=== PATIENT | female | born 2000 | race Caucasian/White ===

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

== ENCOUNTER 2020-01-23 21:59 | Outpatient (CLI) | payer OTHER ==
[~2020-01-23] VITALS: Ht 154.9 cm; Wt 60.8 kg
[2020-01-23 22:20] VITALS: BP 122/77
[2020-01-24 00:51] LABS: APPEARANCE, URINE HAZY (CLEAR); BACTERIA, URINE AUTO 1+ (NEGATIVE); BILIRUBIN, URINE AUTO NEGATIVE (NEGATIVE); BLOOD, URINE BLOOD NEGATIVE (NEGATIVE); COLOR, URINE YELLOW (YELLOW); GLUCOSE, URINE (UA) AUTO NEGATIVE (NEGATIVE); KETONE, URINE AUTO NEGATIVE (NEGATIVE); LEUKOCYTE ESTERASE, URINE AUTO NEGATIVE (NEGATIVE); MUCUS, URINE SMALL (NEGATIVE); NITRITE, URINE AUTO POSITIVE (NEGATIVE); PROTEIN, URINE AUTO NEGATIVE (NEGATIVE); RBC, URINE AUTO 0 /HPF (0-3); SPECIFIC GRAVITY URINE AUTO 1.017 (1.002-1.035); SQUAMOUS EPITHELIAL CELL UR AU 4 /HPF (0-6); TRANSITIONAL EPITHELIAL AUTO 1 /HPF; WBC, URINE AUTO 3 /HPF (0-3)
[2020-01-24] MEDS ORDERED: FLUCONAZOLE 50MG TABLET PO ONE (01:15)
[2020-01-24] MEDS ORDERED: metroNIDAZOLE (FLAGYL) 500 MG TAB PO ONE (01:15)
[2020-01-24] MEDS ORDERED: metroNIDAZOLE (FLAGYL) 500 MG TAB As Ordered ONE (01:25)
--- NOTE | 2020-01-24 01:34 | IPNPDOC ---
Text Note Date of Service The patient was seen on 01/24/20. NOTE patient is a 19 yo G1 @25+4wks gestation presents with concerns for lower abdominal cramping x 1 week. pain has been progressively getting worse. sometimes sharp and intermittent. also has lower back pain. denies constipation/dysuria/abnormal vaginal discharge/vb. vitals: normal nad, sitting in bed back: no pain, dextro scoliosis noted abd: gravid, soft, nt LE: no edema/erythema tenderness pelvic exam: normal appearing external genitalia, no lesion vagina with green/frothy discharge, no lesion cervix visually long and and closed fht: 140/mod kelly/no accel/no decel toco: quiet UA: equivocal for bacteruria urine culture pending. Wet prep: pos clue cells, pos yeast a/p patient is a 19 yo G1 @25+4wks, with vaginal yeast infection and bacterial vaginosis. possible UTI, will wait for culture to confirm. In the mean time, treat yeast infection with diflucan and BV with flagyl. return precautions given. f/u with scheduled clinic appointment. DO ANITA Shea LUAT N. DO January 24, 2020 00:05
== END 2020-01-24 01:38 | disposition home or self-care (01) ==
LOC: M LDO 21:59
PROVIDERS: ATTEND Obstetrics & Gynecology
DX: O26.892 Other specified pregnancy related conditions, second trimester (principal); R10.30 Lower abdominal pain, unspecified; M54.5 Low back pain; O23.592 Infection of other part of genital tract in pregnancy, second trimester; Z3A.25 25 weeks gestation of pregnancy
CPT/HCPCS: 81001; 87086; 87210; G0378; G0463

== ENCOUNTER 2020-02-05 16:56 | Emergency (ER) | payer OTHER ==
[~2020-02-05] VITALS: Ht 154.9 cm; Wt 60.7 kg
[2020-02-05] MEDS ORDERED: METR-265 PO (17:11)
[2020-02-05] MEDS ORDERED: GNP28TAB2 PO (17:11)
[2020-02-05] MEDS ORDERED: PANT20TA2 PO (17:11)
[2020-02-05 19:09] LABS: BASO % 0.2 % (0.0-1.0); EOS # 0.1 10^3/uL (0.0-0.5); EOS % 0.7 % (0.0-3.0); HEMATOCRIT 29.1 % (36.0-47.0); HEMOGLOBIN 9.3 g/dl (12.0-15.5); LYMPH # 1.7 10^3/uL (1.5-5.0); LYMPH % 12.3 % (24.0-44.0); MEAN CORPUSCULAR HEMOGLOBIN 27.3 pg (27.0-33.0); MEAN CORPUSCULAR VOLUME 85.3 fl (80.0-96.0); MONO # 0.7 10^3/uL (0.0-0.8); MONO % 5.2 % (0.0-5.0); NEUTROPHILS % 79.5 % (36.0-66.0); PLATELET COUNT, AUTOMATED 209 10^3/uL (150-450); RED BLOOD COUNT 3.41 10^6/uL (4.00-5.40); WHITE BLOOD COUNT 13.8 10^3/uL (4.0-10.0)
[2020-02-05 19:20] LABS: INR 0.99; PROTHROMBIN TIME 12.8 SECONDS (11.8-14.0)
[2020-02-05 19:21] LABS: PARTIAL THROMBOPLASTIN TIME 22.8 SECONDS (25.0-38.4)
[2020-02-05 19:29] LABS: D-DIMER QUANT 3266.64 ng/ml (<500)
[2020-02-05 19:48] LABS: ALBUMIN 2.5 GM/DL (3.2-5.2); ALT/SGPT 17 U/L (12-78); BILIRUBIN,DIRECT < 0.1 MG/DL (0.0-0.2); BILIRUBIN,TOTAL 0.3 MG/DL (0.2-1.0); BLOOD UREA NITROGEN 6 MG/DL (7-18); CALCIUM LEVEL 8.1 MG/DL (8.5-10.1); CARBON DIOXIDE LEVEL 24 MEQ/L (21-32); CHLORIDE LEVEL 110 MEQ/L (98-107); CK-MB VALUE MASS < 1.0 NG/ML (<3.6); CPK CREATINE PHOSPHOKINASE 29 U/L (26-192); FREE T4 0.95 NG/DL (0.78-1.33); GLUCOSE, FASTING 69 MG/DL (70-100); MB/CK RELATIVE INDEX 3.45 (< OR =4); NT-PRO BNP 32 PG/ML (<125); SODIUM LEVEL 139 MEQ/L (136-145); TOTAL PROTEIN 5.9 GM/DL (6.4-8.2); TROPONIN I < 0.02 NG/ML (< 0.10)
--- NOTE | 2020-02-05 20:02 | REPVR ---
PROCEDURE INFORMATION: Exam: US Duplex Lower Extremity Veins, Bilateral Exam date and time: 02/05/2020 7:55 PM Age: 20 years old Clinical indication: Other: SOB w/ preg; Additional info: SOB R/O dvt TECHNIQUE: Imaging protocol: Real-time duplex ultrasound of the extremities with 2-D bell scale, color Doppler flow and spectral waveform analysis with image documentation. Complete exam focused on the bilateral lower extremity veins. COMPARISON: US Duplex, Ext LOWER veins, bilat BILATERAL 11/24/2019 3:40 PM FINDINGS: Right deep veins: Unremarkable. The common femoral, femoral, proximal profunda femoral and popliteal veins are patent without thrombus. Normal Doppler waveforms. Normal compressibility and/or augmentation response. Right superficial veins: Saphenofemoral junction is patent without thrombus. Left deep veins: Unremarkable. The common femoral, femoral, proximal profunda femoral and popliteal veins are patent without thrombus. Normal Doppler waveforms. Normal compressibility and/or augmentation response. Left superficial veins: Saphenofemoral junction is patent without thrombus. Soft tissues: Unremarkable. IMPRESSION: No evidence of deep vein thrombosis. Electronically signed by: Kwame Emery On 02/05/2020 20:02:06 PM
[2020-02-05 20:03] VITALS: BP 110/60
--- NOTE | 2020-02-05 20:21 | ECGEPIP ---
[facility] - ED Test Date: 2020-02-05 Pat Name: HAZEL ROBLES Department: Room: - Gender: Female Retail Coverage Merchandiser Lead: : 2000 Requested By: Richard Blue Order Number: [id number] Reading MD: Maxime Siddiqui Measurements Intervals Meta Rate: 99 P: 35 CO: 170 QRS: 56 QRSD: 74 T: 6 QT: 331 QTc: 426 Interpretive Statements SINUS RHYTHM WITH SINUS ARRHYTHMIA Similar to tracing done 02-24-19 Electronically Signed on 02-05-2020 20:20:40 EDT by Maxime Siddiqui
--- NOTE | 2020-02-05 21:02 | REPVR ---
PROCEDURE INFORMATION: Exam: CT Angiography Chest With Contrast Exam date and time: 02/05/2020 8:46 PM Age: 20 years old Clinical indication: Shortness of breath; Patient HX: 27 weeks ; Additional info: SOB, R/O pe per ob Dr. Alonzo TECHNIQUE: Imaging protocol: Computed tomographic angiography of the chest with intravenous contrast. 3D rendering: MIP and/or 3D reconstructed images were created by the technologist. Radiation optimization: All CT scans at this facility use at least one of these dose optimization techniques: automated exposure control; mA and/or kV adjustment per patient size (includes targeted exams where dose is matched to clinical indication); or iterative reconstruction. Contrast material: ISOVUE 370; Contrast volume: 75 ml; Contrast route: IV; COMPARISON: CR Abdomen,Flat Upright,PA CHEST 09/25/2013 6:37 PM FINDINGS: Pulmonary arteries: Normal. No pulmonary emboli. Aorta: Unremarkable. No aortic aneurysm. No aortic dissection. Lungs: Unremarkable. No consolidation. No masses. Pleural space: Unremarkable. No pneumothorax. No pleural effusion. Heart: Unremarkable. No cardiomegaly. No pericardial effusion. Lymph nodes: Unremarkable. No enlarged lymph nodes. Bones/joints: Unremarkable. No acute fracture. Soft tissues: Unremarkable. IMPRESSION: No acute findings. Electronically signed by: Kwame Emery On 02/05/2020 21:02:37 PM
== END 2020-02-05 21:40 | disposition home or self-care (01) ==
LOC: M ED 16:56
DX: O99.89 Other specified diseases and conditions complicating pregnancy, childbirth and the puerperium (principal); R00.2 Palpitations; R42 Dizziness and giddiness; O99.343 Other mental disorders complicating pregnancy, third trimester; O99.353 Diseases of the nervous system complicating pregnancy, third trimester; O26.893 Other specified pregnancy related conditions, third trimester; Z3A.27 27 weeks gestation of pregnancy; Z79.899 Other long term (current) drug therapy; Z88.6 Allergy status to analgesic agent; Z88.8 Allergy status to other drugs, medicaments and biological substances

== ENCOUNTER 2020-02-11 10:28 | Outpatient (CLI) | payer OTHER ==
[~2020-02-11] VITALS: Ht 154.9 cm; Wt 61.4 kg
[~2020-02-11 10:28] MED LIST changes: +GNP28TAB2 PO; +METR-265 PO; +PANT20TA6 PO
[2020-02-11 10:51] VITALS: BP 104/72
[2020-02-11 11:50] VITALS: BP 96/66
[2020-02-11] MEDS ORDERED: IRON SUCROSE 300 MG in NS 250 ML OVER 90 MIN. IV ONE (12:00)
[2020-02-11 12:45] VITALS: BP 99/56
[2020-02-11 13:45] VITALS: BP 96/54
[2020-02-11 14:15] VITALS: BP 98/56
== END 2020-02-11 14:15 | disposition home or self-care (01) ==
LOC: M INFU 10:28
PROVIDERS: ATTEND Registered Nurse Maternal Newborn
DX: O99.012 Anemia complicating pregnancy, second trimester (principal); D50.9 Iron deficiency anemia, unspecified; Z3A.27 27 weeks gestation of pregnancy
CPT/HCPCS: 96365; 96366; J1756

== ENCOUNTER 2020-02-18 10:19 | Outpatient (CLI) | payer OTHER ==
[~2020-02-18] VITALS: Ht 154.9 cm; Wt 61.4 kg
[~2020-02-18 10:19] MED LIST changes: +PANT20TA2 PO; -PANT20TA6 PO
[2020-02-18 10:39] VITALS: BP 124/72
[2020-02-18] MEDS ORDERED: IRON SUCROSE 300 MG in NS 250 ML OVER 90 MIN. IV ONE (11:00)
[2020-02-18 12:27] VITALS: BP 104/59
== END 2020-02-18 12:30 | disposition home or self-care (01) ==
LOC: M INFU 10:19
PROVIDERS: ATTEND Registered Nurse Maternal Newborn
DX: O99.89 Other specified diseases and conditions complicating pregnancy, childbirth and the puerperium (principal); D50.9 Iron deficiency anemia, unspecified; Z3A.00 Weeks of gestation of pregnancy not specified
CPT/HCPCS: 96365; 96366; J1756

== ENCOUNTER 2020-02-25 10:53 | Outpatient (CLI) | payer OTHER ==
[~2020-02-25] VITALS: Ht 154.9 cm; Wt 61.4 kg
[~2020-02-25 10:53] MED LIST changes: -PANT20TA2 PO; +PANT20TA6 PO
[2020-02-25 11:17] VITALS: BP 109/67
[2020-02-25] MEDS ORDERED: IRON SUCROSE 300 MG in NS 250 ML OVER 90 MIN. IV ONE (12:00)
[2020-02-25 12:45] VITALS: BP 120/72
[2020-02-25 13:25] VITALS: BP 114/62
== END 2020-02-25 13:25 | disposition home or self-care (01) ==
LOC: M INFU 10:53
PROVIDERS: ATTEND Registered Nurse Maternal Newborn
DX: O99.012 Anemia complicating pregnancy, second trimester (principal); D50.9 Iron deficiency anemia, unspecified; Z3A.27 27 weeks gestation of pregnancy
CPT/HCPCS: 96365; 96366; J1756

== ENCOUNTER 2020-05-01 19:19 | Outpatient (CLI) | payer OTHER ==
[~2020-05-01] VITALS: Ht 154.9 cm; Wt 69.1 kg
[2020-05-01 19:43] VITALS: BP 115/69
== END 2020-05-01 21:36 | disposition home or self-care (01) ==
LOC: M LDO 19:19
DX: O26.893 Other specified pregnancy related conditions, third trimester (principal); Z3A.39 39 weeks gestation of pregnancy
CPT/HCPCS: 59025; G0378; G0463

== ENCOUNTER 2020-05-02 04:09 | Inpatient (IN) | payer OTHER ==
[~2020-05-02] VITALS: Ht 154.9 cm; Wt 69.1 kg
[2020-05-02] VITALS (10 sets, daily range): BP systolic 84–128; BP diastolic 52–69
[2020-05-02 04:57] LABS: HEMATOCRIT 38.1 % (36.0-47.0); HEMOGLOBIN 12.6 g/dl (12.0-15.5); MEAN CORPUSCULAR HEMOGLOBIN 28.5 pg (27.0-33.0); MEAN CORPUSCULAR HGB CONC 33.1 g/dl (32.0-36.5); MEAN CORPUSCULAR VOLUME 86.2 fl (80.0-96.0); PLATELET COUNT, AUTOMATED 210 10^3/uL (150-450); RED BLOOD COUNT 4.42 10^6/uL (4.00-5.40); WHITE BLOOD COUNT 9.6 10^3/uL (4.0-10.0)
[2020-05-02] MEDS ORDERED: miSOPROStol 50 MCG 1/2 TAB (S0191) As Ordered ONE (06:20)
--- NOTE | 2020-05-02 06:40 | HPEPDOC ---
Obstetrical History & Physical General Date of Admission May 02, 2020 at 04:28 History of Present Illness 20yo at 39+6wks presenting for c/o gush of green-tinged fluid at 0300. She reports she went to the bathroom and upon walking back to the bed had a large gush of fluid that was green-tinged. She reports good FM. Denies VB. She notes she has had cramping pelvic pain but was diagnosed with vaginal yeast infection yesterday and her cramping improved after taking monistat. Chief Complaint: Rupture of membranes Information Provided By: Patient Age: 20 : 2 Term: 0 Pre-term: 0 Abortions: 1 Livin Care Care: Good Care Dating Final EDC: May 03, 2020 Final EDC for Daily Update: May 03, 2020 Final EDC by: LMP LMP: Jul 28, 2019 1st Trimester Date: Sep 29, 2019 Weeks + Days: 9 (+2) EGA at Admission: 39 (+6) Antepartum Course Diagnos(e)s -induced tachycardia/postural tachycardia Anemia Rh negative Excessive weight gain (44lbs) GERD Migraines Height (inches): 61 Pre- weight (lbs.): 111 Admission Weight (lbs.): 154 Change in Weight (lbs.): 44 Past Medical History Past Obstetrical History : Past Obstetrical History: Multigravida () GRINDING OPERATOR History: Spontaneous Past Medical History Medical History -induced tachycardia/postural tachycardia Anemia GERD Migraines Surgical History: Tonsilectomy, [place] teeth Family History Significant Family History: Cancer (PGM - lung cancer), Diabetes (PGF), Heart disease (MGF, PGF), Hypertension (Father) Social History Marital Status: Family situation: Spouse/partner home Psychosocial History: Anxiety * Smoker: non-smoker Alcohol: Denies Drugs: denies Abuse Violence Screening Have you been hit/kicked/slapp: No Have you been sexually assault: No Imunizations Tdap status: declined Influenza Status: current (10/27/2019) Allergies Coded Allergies: ibuprofen (Verified Allergy, Intermediate, mother allergic to it, 02/24/19) gabapentin (Verified Adverse Reaction, Intermediate, muscle fatigue, 02/24/19) Medications Scheduled Pantoprazole Sodium (Pantoprazole Sodium) 20 Mg Tablet.dr, 1 TAB PO DAILY Pnv No.95/Ferrous Fum/Folic AC ( Vitamins Tablet) 1 Each Tablet, 1 TAB PO DAILY Physical Examination Physical Examination GENERAL: Alert and oriented times three. BREAST: . ABDOMEN: Gravid and non-tender to touch. FETUS: Is vertex (VTX) by sterile vaginal examination (SVE), fetus is vertex (VTX) by Get. HEART RATE: Regular rate and rhythm. LUNGS: Clear to auscultation (CTA). EXTREMITIES: No edema. No clonus. Deep tendon reflexes (DTRs) + . Vital Signs/I&O Vital Signs Date Time Temp Pulse Resp B/P (MAP) Pulse Ox O2 Delivery O2 Flow Rate FiO2 05/02/20 04:20 97.9 117 16 126/69 (88) Laboratory Data 24H LABS Laboratory Tests 2 05/02/20 04:30: Nucleated Red Blood Cells % (auto) 0.0 05/02/20 04:33: Serology Scanned Report Hepatitis B Testing CBC/BMP Laboratory Tests 05/02/20 04:30 Urine Culture: Contaminated Pertinent Laboratoy Data Blood Type: AB- RBC Antibody Screen: Negative HIV: Negative Hepatitis B: Negative Rapid Plasma Reagin: Nonreactive Rubella: Immune Varicella: Immune Chlamydia/Gonorrhea: Negative Group B Streptococcus: Negative (04/05/2020) Quad Screen Test: Declined Cystic Fibrosis: Negative Anatomy Ultrasound Ultrasound Date: Dec 17, 2019 Placenta Location: Anterior Normal Anatomy: Yes Placenta Previa: No Vaginal Examination Dilation: None Effacement: 50% Station: -3 Cervical Consistency: Medium Cervical Position: Posterior Presentation: Cephalic presentation (by thais) Assessment Heart Rate (FHR): 130 Variability: Moderate Accelerations: Positive Decelerations: None Tocometer Contractions: Yes Frequency: irregular Duration: less than 60 seconds Strength: palpated as mild Multi-drug resistant Organism: No history of MDRO Assessment/Plan Assessment 20yo at 39+6wks presenting for gush of green-tinged fluid. Patient with PROM notable for meconium. SVE closed/50/-3. Normotensive, afebrile, NST cat I. EFW 3400g. Plan Admit and orient. Dorr Operator and consent. Diet: regular x1 then clears Group B Streptococcus (GBS) negative. Labs and intravenous (IV) per unit protocol. Counseled on induction methods to include expectant, bethea balloon, cytotec, and pitocin - patient desires to start with cytotec Lactated Ringers (LR): at 125ml/hr Anticipate . C-S as appropriate. IRIS MCCOY DO May 02, 2020 06:40
--- NOTE | 2020-05-02 10:38 | IPNPDOC ---
Obstetrical Progress Note Date of Service May 02, 2020 Subjective To room for interval assessment. Patient has no complaints or concerns. She does feel more pressure. She denied n/v/d, cp, sob, moran, visual changes, f/c, urinary sx. Objective Vital Signs Date Time Temp Pulse Resp B/P (MAP) Pulse Ox O2 Delivery O2 Flow Rate FiO2 05/02/20 09:14 97.2 94 16 Room Air 05/02/20 04:20 126/69 (88) Assessment Heart Rate (FHR): 125 Variability: Moderate Accelerations: Positive Decelerations: None Heart Rate Tracing: Category I Tocometer Contractions: Yes Frequency: irregular Sterile Vaginal Examination Dilation: None Effacement (%): 50% Station: -3 Cervical Consistency: Firm Cervical Position: Posterior Postion/Presentation: Cephalic presentation (by US) Assessment and Plan Status: Reassuring Additional Comments CAT I tracing, reactive (single deceleration >20 min ago with adequate recovery). Normal VS. Negative ROS, feels more pressure. Reconfirmed cephalic presentation with US as did not make change and area of monitoring for FHR required repositioning. Will continue IOL with cytotec, ordering 25mcg buccal. Plan to reassess in 4-6h or sooner if clinically indicated. LAMAR BECKER DO May 02, 2020 10:38
[2020-05-02] MEDS ORDERED: miSOPROStol 25 MCG 1/4 TAB (S0191) PO SCH (11:00)
--- NOTE | 2020-05-02 15:07 | IPNPDOC ---
Obstetrical Progress Note Date of Service May 02, 2020 Subjective To room for routine 4h assessment. Patient still reports painful contractions unchanged from prior assessment. Objective Vital Signs Date Time Temp Pulse Resp B/P (MAP) Pulse Ox O2 Delivery O2 Flow Rate FiO2 05/02/20 13:14 97.4 81 18 84/52 (63) Room Air Assessment Heart Rate (FHR): 140 Variability: Moderate Accelerations: Positive Decelerations: None Heart Rate Tracing: Category I Tocometer Contractions: Yes Frequency: regular Sterile Vaginal Examination Dilation: None Effacement (%): 50% Station: -3 Cervical Consistency: Medium Cervical Position: Posterior Postion/Presentation: Cephalic presentation (by US) Assessment and Plan Status: Reassuring Additional Comments To room for routine assessment. Patient is now ruptured since 0300 and s/p 50mcg cytotec PO and 25mcg buccal 4h later. Her cervix has made no change and is still CL/50/-3. She denied fever or abdominal tenderness. Her VS are normal. I once again assessed the presentation by US which appears cephalic, but as fluid is more prevalent on one side of the head than the other and the lack of cervical change I suspect some acyclincitism. I explained to the patient that approx 80% of women with ROM at term have cervical change within 12h. I explained that 12-24h ruptured unchanged during induction of labor can be classified as a failed induction. I explained that 18 hours ruptured without labor is considered prolonged rupture of membranes and is associated with increased risk of infection and abruption. I offered to continue cytotec or transition to pitocin vs continue to for failed induction of labor in the setting of prolonged rupture of membranes. The patient would like to proceed with pitocin and attempt for onset of labor. After the 18 hour cady, or sooner if she changes her mind in the interm, the patient explained she does not want to assume the risks of continuing to labor and would like a at that time. LAMAR BECKER DO May 02, 2020 15:07
[2020-05-02] MEDS ORDERED: OXYTOCIN 30 UNITS IN 0.9% NaCl 500ML IV BAG (J2590) As Ordered ONE (15:12)
[2020-05-02] MEDS ORDERED: OXYTOCIN DRIP 30 UNITS in IV 1 EA IV SCH (15:15)
[2020-05-02] MEDS ORDERED: PROMETHAZINE INJ 25 MG/ML VIAL (J2550) IV ONE ×2 (15:45→16:00)
[2020-05-02] MEDS ORDERED: BUTORPHANOL 2 MG/ML INJ (J0595) IV ONE ×2 (15:45→16:00)
[2020-05-02] MEDS ORDERED: FENTANYL 2MCG/ML ROPIVACAINE 0.2% IN 0.9% NACL 100ML IVBAG As Ordered ONE (18:55)
[2020-05-02] MEDS ORDERED: ceFAZolin 2 GM/D5W 50 ML IV BAG (J0690 PER 500MG) As Ordered ONE (20:19)
[2020-05-02] MEDS ORDERED: BICITRA 30ML SOLN UDC As Ordered ONE (20:19)
[2020-05-02] MEDS ORDERED: AZITHROMYCIN INJ 500MG VIAL (J0456 PER 500MG) As Ordered ONE (20:19)
[2020-05-02] MEDS ORDERED: MORPHINE PRES-FREE INJ 10 MG/10 ML VIAL (J2274) As Ordered ONE (20:26)
[2020-05-02] MEDS ORDERED: OXYTOCIN INJ 10 UNITS/ML VIAL (J2590) As Ordered ONE ×2 (20:27→21:23)
[2020-05-02] MEDS ORDERED: BICITRA 30ML SOLN UDC PO ONE (20:30)
[2020-05-02] MEDS ORDERED: ceFAZolin SOD 2 GM in IV 1 EA IV ONE (20:30)
[2020-05-02] MEDS ORDERED: AZITHROMYCIN INJ 500 MG, VIAL MATE ADAPTER 1 EACH in D5W 250 ML IV ONE (20:30)
--- NOTE | 2020-05-02 20:42 | IPNPDOC ---
Obstetrical Progress Note Date of Service May 02, 2020 Subjective To room as approaching 18 hours ruptured. Patient reports increased pain in her back but no increased pressure. Objective Vital Signs Date Time Temp Pulse Resp B/P (MAP) Pulse Ox O2 Delivery O2 Flow Rate FiO2 05/02/20 18:31 97.0 89 20 111/67 (82) Room Air Assessment Heart Rate (FHR): 130 Variability: Moderate Accelerations: Positive Decelerations: None Heart Rate Tracing: Category I Tocometer Contractions: Yes Frequency: irregular Sterile Vaginal Examination Dilation: Fingertip Station: -3 Cervical Consistency: Firm Cervical Position: Posterior Postion/Presentation: Cephalic presentation Assessment and Plan Status: Reassuring Group B Streptococcus: Negative Anticipate: Section Additional Comments To room for assessment at 18 hours ruptured. CAT I tracing, reactive, normal VS. SVE recheck FT/T/H. Discussed with patient that we could continue with IOL and reassess at 24h ruptured. Revisited prior conversation about risks of prolonged rupture vs risks of . Patient requested a . I again reviewed the risk of and risk of repeat if she desires future children. Given failure of cytotec and pitocin to make cervical change, concern for acyncliticism (which was reaffirmed on this most recent exam with significant space on the right side of maternal pelvis and lack of cervix application to the head), and the patients distress; a for failed induction in the setting of prolonged rupture of membranes is reasonable at this time. LAMAR BECKER DO May 02, 2020 20:42
[2020-05-02] MEDS ORDERED: BUPIVACAINE HCL 0.25% 30ML VIAL As Ordered ONE (20:54)
[2020-05-02] MEDS ORDERED: NALBUPHINE HCL 10 MG/ML AMP (J2300) IV PRN (20:55)
[2020-05-02] MEDS ORDERED: NALOXONE INJ 0.4MG/1ML VIAL (J2310 PER 1MG) IV PRN ×2 (20:55)
[2020-05-02] MEDS ORDERED: METOCLOPRAMIDE INJ 10MG/2ML VIAL (J2765 PER 1) IV PRN ×2 (20:55→22:45)
[2020-05-02] MEDS ORDERED: ONDANSETRON 4MG/2ML VIAL IV PRN ×2 (20:55→22:45)
[2020-05-02] MEDS ORDERED: diphenhydrAMINE 50MG/ML VIAL (J1200) IV PRN (20:55)
[2020-05-02] MEDS ORDERED: BUPIVACAINE HCL 0.25% 10ML VIAL As Ordered ONE (20:56)
[2020-05-02] MEDS ORDERED: BUPIVACAINE HCL 0.5% 10ML VIAL IM ONE (21:00)
[2020-05-02] MEDS ORDERED: BUPIVACAINE HCL 0.25% 10ML VIAL IM ONE (21:00)
[2020-05-02] MEDS ORDERED: ONDANSETRON 4MG/2ML VIAL As Ordered ONE (21:02)
[2020-05-02] MEDS ORDERED: dexameTHASONE 4 MG/ML 1ML VIAL (J1100 PER 1MG) As Ordered ONE (21:13)
[2020-05-02] MEDS ORDERED: ePHEDrine SULFATE 25 MG/5 ML(5MG/ML) SYRINGE As Ordered ONE (21:13)
[2020-05-02] MEDS ORDERED: PHENYLephrine HCL 500 MCG/5 ML (100MCG/ML) SYRINGE (J2370) As Ordered ONE (21:13)
[2020-05-02 22:05] LABS: CORD GAS ABE A -7.3; CORD GAS HCO3 A 20.5 MEQ/L; CORD GAS O2 SAT A 33.6 %; CORD GAS PCO2 A 49.8 mmHg; CORD GAS PH A 7.233 UNITS; CORD GAS PO2 A 18.5 mmHg; CORD GAS SBC A 17.2 MEQ/L; CORD GAS TCO2 A 22.1 MEQ/L
[2020-05-02 22:08] LABS: CORD GAS ABE V -5.1; CORD GAS HCO3 V 20.6 MEQ/L; CORD GAS O2 SAT V 70.7 %; CORD GAS PCO2 V 40.9 mmHg; CORD GAS PH V 7.321 UNITS; CORD GAS SBC V 19.7 MEQ/L; CORD GAS TCO2 V 21.9 MEQ/L
--- NOTE | 2020-05-02 22:38 | DNPDOC ---
[facility] Delivery Note Delivery Note DATE OF DELIVERY: 05/02/2020 PREDELIVERY DIAGNOSIS: 39+6/7 weeks' gestation, failed induction of labor, prolonged rupture of membranes POST DELIVERY DIAGNOSIS: Delivered. PROCEDURE: primary section LAMP SHADE ASSEMBLER: Dr. Nate Becker DO ANESTHESIA: spinal ESTIMATED BLOOD LOSS: 700 mL. FINDINGS: 3250g male , Score 7/9, nuchal cord times 0. DELIVERY SUMMARY: Patient is a 20-year-old 1 now para 1001 who was admitted to labor and delivery for PROM at 0300. She underwent induction with cytotec and pitocin and at 18 hours ruptured had not made cervical change. On exam baby also felt acynclitic but was scanning cephalic on US. Joint decision making was performed and decision was made to proceed with . The risks benefits, and alternatives of the procedure were discussed and written consent was obtained. The patient was taken to the OR where spinal anesthesia was initiated. A bethea was placed in the bladder and the patient was positioned supine with a left lateral tilt. A final time out was performed. Adequacy of the anesthesia was then tested with an jessee clamp. A pfannenstiel incision was then made with a scalpel and carried to the fascia. The fascia was then scored and the incision extended in a curvilinear fashion with the curved skelton scissors. The superior edge of the fascia was grasped and dissected bluntly from the muscles and with curved skelton scissors in the midline. The procedure was then repeated on the i nferior edge of the fascia. The muscles were bluntly at the midline and the peritoneum was entered and extended bluntly. The lower uterine segment was identified and the bladder blade was placed. A curvilinear incision was then made transversely in the lower uterine segment. The position was noted to be in a face presentation with mentum posterior. The head was then lifted to the hysterotomy and with fundal pressure delivered atraumatically followed by the corpus without difficulty. The baby had spontaneous movement and cry. The cord was clamped x2 and cut. Cord gasses and blood were obtained. The placenta was then delivered via manual expression and noted to be in-tact. The hysterotomy was then closed with 0-monocryl in a running locking fashion and with a horizontal imbricating layer. The hysterotomy was noted to be hemostatic with the aid of 3 additional figure of eight stitches with 0-monocryl. The posterior cul-de-sac was suctioned of debris and a moist lab used to clear of debris. The uterus, ovaries, and fallopian tubes were noted to be normal in appearance. The hysterotomy was then visualized to be hemostatic. The uterus was replaced and the gutters were cleared of debris with a moist lap. The hysterotomy was again inspected to be hemostatic. The muscles were inspected to be hemostatic. The fascia was then closed with 0-vicryl in a running fashion. The fascia was palpated to be without defect. The subcutaneous tissue was then injected with 10cc of 0.25% marcaine and copiously irrigated with warm saline. The subcutaneous tissue was then reapproximated with 3-0 vicry and the skin with 3-0 monocryl. The skin was then secured with dermabond. There were no complications and the patient tolerated the procedure well. The sponge, lap, and needle counts were correct x2. The patient was transferred to recovery in stable condition. NATE BECKER DO May 02, 2020 22:38
[2020-05-02] MEDS ORDERED: ACETAMINOPHEN TAB 650MG DOSE (2X325MG) PO PRN (22:45)
[2020-05-02] MEDS ORDERED: DOCUSATE SODIUM 100 MG CAP PO PRN (22:45)
[2020-05-02] MEDS ORDERED: LR 1,000 ML IV SCH (22:45)
[2020-05-02] MEDS ORDERED: RHOGAM 300 MCG (1500 IU) INJ (J2790) IM SCH (22:45)
[2020-05-02] MEDS ORDERED: oxyCODONE 5MG TAB PO PRN ×3 (22:45)
[2020-05-02] MEDS ORDERED: ACETAMINOPHEN 500 MG TAB PO PRN (22:45)
[2020-05-02] MEDS ORDERED: fentaNYL 100 MCG/2 ML INJECTION (J3010) IV PRN (22:45)
[2020-05-02 22:59] LABS: HEMATOCRIT 30.6 % (36.0-47.0); MEAN CORPUSCULAR HEMOGLOBIN 29.4 pg (27.0-33.0); PLATELET COUNT, AUTOMATED 164 10^3/uL (150-450); RED BLOOD COUNT 3.44 10^6/uL (4.00-5.40); WHITE BLOOD COUNT 16.5 10^3/uL (4.0-10.0)
[2020-05-02 23:01] LABS: HEMOGLOBIN 10.1 g/dl (12.0-15.5)
[2020-05-03] VITALS (8 sets, daily range): BP systolic 92–112; BP diastolic 52–59
[2020-05-03] MEDS: ACETAMINOPHEN 500 MG TAB PO SCH ×4 (01:28→18:15)
[2020-05-03 07:58] LABS: HEMATOCRIT 29.5 % (36.0-47.0); HEMOGLOBIN 9.7 g/dl (12.0-15.5); MEAN CORPUSCULAR HEMOGLOBIN 28.6 pg (27.0-33.0); MEAN CORPUSCULAR HGB CONC 32.9 g/dl (32.0-36.5); PLATELET COUNT, AUTOMATED 181 10^3/uL (150-450); RED BLOOD COUNT 3.39 10^6/uL (4.00-5.40); WHITE BLOOD COUNT 17.4 10^3/uL (4.0-10.0)
--- NOTE | 2020-05-03 08:26 | IPNPDOC ---
Progress Note Date of Service: May 03, 2020 Day#: 1 Progress Note SUBJECT: This morning. Otherwise, she is doing well without complaints. Ambulating, voiding and pain is well-controlled. Reports minimal lochia. +breast feeding OBJECTIVE: vss,AF Alert and oriented times three. Abdomen: Fundus firm at U-2. Soft, NTTP. Incision: C/D/I Ext: neg calf tenderness. ASSESSMENT: day/postoperative Day #1 status post 1LTCS. Recovering in stable condition. PLAN: 1. Continue routine care 2. Discharge plans for tomorrow VS, I&O, 24H, Fishbone Vital Signs/I&O Vital Signs Date Time Temp Pulse Resp B/P (MAP) Pulse Ox O2 Delivery O2 Flow Rate FiO2 05/03/20 06:15 97.4 98 16 100/59 (73) 96 Room Air I&O- Last 24 Hours up to 6 AM 05/03/20 06:00 Intake Total 2150 ml Output Total 5700 ml Balance -3550 ml Laboratory Data 24H LABS Laboratory Tests 2 05/02/20 21:30: Cord Arterial Blood pH 7.233, Cord Arterial Blood PCO2 49.8, Cord Arterial Blood PO2 18.5, Cord Arterial Blood HCO3 20.5, Cord Arterial Blood Total CO2 22.1, Cord Arterial Blood Base Excess -7.3, Cord Arterial Base Excess (Standard 17.2, Cord Arterial Bld Oxygen Saturation 33.6, Cord Venous Blood pH 7.321, Cord Venous Blood PCO2 40.9, Cord Venous Blood PO2 30.0, Cord Venous Blood HCO3 20.6, Cord Venous Blood Total CO2 21.9, Cord Venous Base Excess (Actual) -5.1, Cord Venous Base Excess (Standard) 19.7, Cord Venous Blood Oxygen Saturation 70.7 05/02/20 22:48: Nucleated Red Blood Cells % (auto) 0.0 05/03/20 07:24: Nucleated Red Blood Cells % (auto) 0.0 CBC/BMP Laboratory Tests 05/02/20 22:48 05/03/20 07:24 MARIA A WILLIAM MD. May 03, 2020 08:26
[2020-05-03] MEDS: PRENATAL VITAMINS CHEWABLE TABLET PO SCH (11:05)
[2020-05-04] MEDS: ACETAMINOPHEN 500 MG TAB PO SCH ×2 (00:50→06:06)
[2020-05-04 02:00] VITALS: BP 106/55
[2020-05-04 06:00] VITALS: BP 100/56
[2020-05-04] MEDS: PRENATAL VITAMINS CHEWABLE TABLET PO SCH (08:47)
[2020-05-04] MEDS ORDERED: NAPROXEN 250 MG TAB PO ONE (11:30)
--- NOTE | 2020-05-04 11:35 | IPNPDOC ---
Progress Note Date of Service: May 04, 2020 Day#: 2 Progress Note SUBJECT: 20-year-old 1 now para 1001 who was admitted to labor and [facility] for PROM now POD2 s/p PLTCD for failed induction in the setting of prolonged rupture of membranes. She has been ambulating, voiding spontaneously without issue and tolerating regular diet. Breast feeding without issue. Reports lochia is like a normal period. Patient is ambulating well. Reports some cramping with . Denies any pain. Voiding and passing flatus without difficulty. OBJECTIVE: VITAL SIGNS: Within normal limits, afebrile. Alert and oriented times three. Breath sounds clear to auscultation. Heart rate: Regular rate and rhythm, no murmurs, rubs or gallops. Abdomen: Fundus firm at U-2. Soft, NTTP. Pfannenstiel incision is clean dry and well approx with dermabond Minimal lochia. APC -induced tachycardia/postural tachycardia Anemia Rh negative - received rhogam at 28wk and on POD1 Excessive weight gain (44lbs) GERD Migraines ASSESSMENT: 20-year-old 1 now para 1001 who was admitted to labor and delivery for PROM now POD2 s/p PLTCD for failed induction in the setting of prolonged rupture of membranes. Vitals within normal limits, afebrile, hemodynamically stable with no evidence of infection. PLAN: 1. Discharge to home today. 2. Tylenol and oxycodone for pain. Patient also takes naproxen and has some at home (reports this is not affected by her motrin allergy). Will give 1 dose before leaving today 3. Encourage breast feeding and ambulation. 4. Contraception undecided, educated on risk of close interval , will discuss at 2wk incision check 5. Routine PP visit in 6 weeks in clinic. 6. Discussed return precautions at length. VS, I&O, 24H, Fishbone Vital Signs/I&O Vital Signs Date Time Temp Pulse Resp B/P (MAP) Pulse Ox O2 Delivery O2 Flow Rate FiO2 05/04/20 07:09 18 Room Air 05/04/20 06:00 98.2 94 100/56 (71) 96 I&O- Last 24 Hours up to 6 AM 05/04/20 06:00 Intake Total 360 ml Output Total 1775 ml Balance -1415 ml ROSITA,LAMAR C. DO May 04, 2020 11:35
--- NOTE | 2020-05-09 18:16 | IPN ---
DATE: 05/03/2020 HISTORY: This patient and her requested a circumcision of their male infant. PLAN: After discussing risks and benefits of the circumcision, the medical and non-medical indications, the penile block and after care expressed understanding of penile block and after care and bleeding, signed the Consent Form, all questions were answered, 20 minute discussion, we await the clearance by the technology manager. SURI
== END 2020-05-04 12:20 | disposition home or self-care (01) | DRG 773 ==
LOC: M LDO 04:09 → M LDI 04:28 → M OBS 05-03 05:55
PROVIDERS: ATTEND Obstetrics & Gynecology
PROC: 10D00Z1 Extraction of Products of Conception, Low, Open Approach (ICD-10-PCS; principal; 2020-05-02 20:40)
DX: O42.12 Full-term premature rupture of membranes, onset of labor more than 24 hours following rupture (principal); O77.0 Labor and delivery complicated by meconium in amniotic fluid; Z3A.39 39 weeks gestation of pregnancy; O99.02 Anemia complicating childbirth; D64.9 Anemia, unspecified; O61.0 Failed medical induction of labor; Z37.0 Single live birth; O64.2XX0 Obstructed labor due to face presentation, not applicable or unspecified

== ENCOUNTER → 2021-04-06 | Outpatient (CLI) | payer OTHER ==
--- NOTE | 2021-04-06 15:09 | REP ---
INDICATION: IRREGULAR MENSTRUATION, IUD DISPLACMENT. COMPARISON: None. TECHNIQUE: Multiple ultrasonographic images of the pelvis including transabdominal, endovaginal and Doppler ultrasound. FINDINGS: The bladder is adequately distended. The uterus is anteverted and normal size measuring 8.2 x 4.0 x 5.3 cm. The myometrium is unremarkable. The endometrium is not thickened measuring 4 mm. There is an IUD in the fundal and body portions of the endometrial canal in satisfactory position. Right ovary: The right ovary measures 3.6 x 2.2 x 3.9 cm and is normal size. Within the right ovary there is a hypoechoic 1.3 cm diameter structure with slightly undulating margins, compatible with an involuting cyst. Left ovary: The left ovary measures 2.1 x 2.1 x 1.5 cm and is normal size. There is no dominant mass or cyst. There is vascular flow in both ovaries with the Doppler resistive index in the parenchymal arteries of the right ovary measuring 0.44 left ovary 0.40. No free fluid in the pelvis. IMPRESSION: The IUD is in satisfactory position in the fundal and body portions of the endometrial canal. There is an involuting cyst in the right ovary measuring 1.3 cm in diameter. There is vascular flow in both ovaries. <Electronically signed by Alfa Tovar > 04/06/21 [id number]
== END ==
LOC: M RAD 13:50
PROVIDERS: ATTEND Nurse Practitioner Family
DX: N92.6 Irregular menstruation, unspecified (principal); Z97.5 Presence of (intrauterine) contraceptive device; R10.2 Pelvic and perineal pain; N83.201 Unspecified ovarian cyst, right side

== ENCOUNTER → 2021-10-16 | Outpatient (CLI) | payer OTHER | LOC: M RAD 16:11 | PROVIDERS: ATTEND Physician Assistant Medical | DX: Z30.431 Encounter for routine checking of intrauterine contraceptive device (principal); R10.2 Pelvic and perineal pain ==

== ENCOUNTER → 2021-12-18 | Outpatient (CLI) | payer OTHER | LOC: M WHC 12:10 | PROVIDERS: ATTEND Physician Assistant Medical | DX: N83.201 Unspecified ovarian cyst, right side (principal) ==

== ENCOUNTER → 2022-01-31 | Outpatient (CLI) | payer OTHER ==
[2022-01-31 17:26] LABS: HEMATOCRIT 36.9 % (36.0-47.0); HEMOGLOBIN 12.9 g/dl (12.0-15.5); MEAN CORPUSCULAR HEMOGLOBIN 29.5 pg (27.0-33.0); MEAN CORPUSCULAR VOLUME 84.2 fl (80.0-96.0); PLATELET COUNT, AUTOMATED 288 10^3/uL (150-450); RED BLOOD COUNT 4.38 10^6/uL (4.00-5.40); WHITE BLOOD COUNT 11.6 10^3/uL (4.0-10.0)
[2022-01-31 19:17] LABS: GC DNA AMPLIFICATION NEGATIVE (NEGATIVE)
[2022-01-31 22:26] LABS: HEPATITIS B SURFACE ANTIGEN NEGATIVE (NEGATIVE); HEPATITIS C VIRUS ABY INDEX 0.1 INDEX (<0.8); HIV 1&2 SCREEN CENTAUR NEGATIVE (NEGATIVE)
== END ==
LOC: M PLALAB 13:51
PROVIDERS: ATTEND Advanced Practice Midwife
DX: O34.211 Maternal care for low transverse scar from previous cesarean delivery (principal)

== ENCOUNTER → 2022-02-16 | Outpatient (CLI) | payer OTHER | LOC: M PLALAB 14:12 | PROVIDERS: ATTEND Advanced Practice Midwife | DX: Z34.80 Encounter for supervision of other normal pregnancy, unspecified trimester (principal) ==

== ENCOUNTER → 2022-02-28 | Outpatient (REF) | payer OTHER | LOC: M SFHCWAGY 13:35 | PROVIDERS: ATTEND Obstetrics & Gynecology | DX: O34.211 Maternal care for low transverse scar from previous cesarean delivery (principal) ==

== ENCOUNTER → 2022-04-02 | Outpatient (CLI) | payer OTHER | LOC: M WHC 14:11 | PROVIDERS: ATTEND Obstetrics & Gynecology | DX: O34.211 Maternal care for low transverse scar from previous cesarean delivery (principal); Z3A.20 20 weeks gestation of pregnancy ==

== ENCOUNTER → 2022-05-07 | Outpatient (CLI) | payer OTHER | LOC: M WHC 12:00 | PROVIDERS: ATTEND Obstetrics & Gynecology | DX: Z36.2 Encounter for other antenatal screening follow-up (principal); Z3A.25 25 weeks gestation of pregnancy ==

== ENCOUNTER → 2022-05-23 | Outpatient (CLI) | payer OTHER ==
[2022-05-23 17:29] LABS: HEMATOCRIT 31.2 % (36.0-47.0); HEMOGLOBIN 9.8 g/dl (12.0-15.5); MEAN CORPUSCULAR HEMOGLOBIN 26.3 pg (27.0-33.0); MEAN CORPUSCULAR HGB CONC 31.4 g/dl (32.0-36.5); MEAN CORPUSCULAR VOLUME 83.6 fl (80.0-96.0); PLATELET COUNT, AUTOMATED 206 10^3/uL (150-450); RED BLOOD COUNT 3.73 10^6/uL (4.00-5.40); WHITE BLOOD COUNT 10.6 10^3/uL (4.0-10.0)
[2022-05-23 20:12] LABS: GC DNA AMPLIFICATION NEGATIVE (NEGATIVE)
== END ==
LOC: M PLALAB 14:19
PROVIDERS: ATTEND Obstetrics & Gynecology
DX: Z36.89 Encounter for other specified antenatal screening (principal); Z3A.24 24 weeks gestation of pregnancy

== ENCOUNTER 2022-06-20 08:00 | Outpatient (CLI) | payer OTHER ==
[~2022-06-20] VITALS: Ht 154.9 cm; Wt 70.5 kg
[~2022-06-20 08:00] MED LIST changes: +IRON SUCROSE 500 MG in NS 250 ML IV ONE
[2022-06-20 08:22] VITALS: BP 104/63
[2022-06-20 12:45] VITALS: BP 126/63
== END 2022-06-20 13:00 | disposition home or self-care (01) ==
LOC: M INFU 08:00
PROVIDERS: ATTEND Specialist
DX: D64.9 Anemia, unspecified (principal); Z88.8 Allergy status to other drugs, medicaments and biological substances; Z88.6 Allergy status to analgesic agent
CPT/HCPCS: 96365; 96366; J1756

== ENCOUNTER 2022-07-11 07:00 | Outpatient (CLI) | payer OTHER ==
[~2022-07-11] VITALS: Ht 154.9 cm; Wt 71.7 kg
[2022-07-11 07:00] VITALS: BP 127/74
[~2022-07-11 07:00] MED LIST changes: -IRON SUCROSE 500 MG in NS 250 ML IV ONE
[2022-07-11] MEDS ORDERED: IRON SUCROSE 500 MG in NS 250 ML OVER 4 HRS IV ONE (07:15)
[2022-07-11 08:40] VITALS: BP 111/59
[2022-07-11 09:40] VITALS: BP 116/56
[2022-07-11 10:40] VITALS: BP 115/65
[2022-07-11 11:40] VITALS: BP 126/64
[2022-07-11 12:20] VITALS: BP 122/66
== END 2022-07-11 12:20 | disposition home or self-care (01) ==
LOC: M INFU 07:00
PROVIDERS: ATTEND Advanced Practice Midwife
DX: D64.9 Anemia, unspecified (principal); Z88.6 Allergy status to analgesic agent; Z88.8 Allergy status to other drugs, medicaments and biological substances
CPT/HCPCS: 96365; 96366; J1756

== ENCOUNTER 2022-07-17 07:10 | Outpatient (CLI) | payer OTHER ==
[~2022-07-17] VITALS: Ht 154.9 cm; Wt 70.5 kg
[~2022-07-17 07:10] MED LIST changes: +IRON SUCROSE 500 MG in NS 250 ML OVER 4 HRS IV ONE
[2022-07-17 07:24] VITALS: BP 121/58
[2022-07-17 08:30] VITALS: BP 128/64
[2022-07-17 09:29] VITALS: BP 116/56
[2022-07-17 10:29] VITALS: BP 120/59
[2022-07-17 12:00] VITALS: BP 117/64
== END 2022-07-17 12:00 | disposition home or self-care (01) ==
LOC: M INFU 07:10
PROVIDERS: ATTEND Advanced Practice Midwife
DX: D64.9 Anemia, unspecified (principal); Z88.6 Allergy status to analgesic agent; Z88.8 Allergy status to other drugs, medicaments and biological substances
CPT/HCPCS: 96365; 96366; J1756

== ENCOUNTER → 2022-07-18 | Outpatient (REF) | payer OTHER ==
[~2022-07-18] MED LIST changes: -IRON SUCROSE 500 MG in NS 250 ML OVER 4 HRS IV ONE
== END ==
LOC: M PLALAB 10:48
PROVIDERS: ATTEND Advanced Practice Midwife
DX: Z36.89 Encounter for other specified antenatal screening (principal); Z3A.00 Weeks of gestation of pregnancy not specified

== ENCOUNTER 2022-07-31 07:35 | Outpatient (CLI) | payer OTHER ==
[~2022-07-31] VITALS: Ht 154.9 cm; Wt 70.5 kg
[~2022-07-31 07:35] MED LIST changes: +IRON SUCROSE 500 MG in NS 250 ML OVER 4 HRS IV ONE; +OMEP1CAP73 PO
[2022-07-31 07:52] VITALS: BP 108/59
[2022-07-31 09:00] VITALS: BP 104/61
[2022-07-31 10:00] VITALS: BP 111/71
[2022-07-31 11:00] VITALS: BP 127/68
[2022-07-31 12:00] VITALS: BP 126/67
== END 2022-07-31 12:10 | disposition home or self-care (01) ==
LOC: M INFU 07:35
PROVIDERS: ATTEND Advanced Practice Midwife
DX: D64.9 Anemia, unspecified (principal); Z88.6 Allergy status to analgesic agent; Z88.8 Allergy status to other drugs, medicaments and biological substances
CPT/HCPCS: 96365; 96366; J1756

== ENCOUNTER → 2022-08-06 | Outpatient (CLI) | payer OTHER ==
[~2022-08-06] MED LIST changes: -IRON SUCROSE 500 MG in NS 250 ML OVER 4 HRS IV ONE
== END ==
LOC: M LABSMTC 10:02
PROVIDERS: ATTEND Anesthesiology
DX: Z01.812 Encounter for preprocedural laboratory examination (principal); Z11.52 Encounter for screening for COVID-19

== ENCOUNTER → 2022-12-07 | Outpatient (REF) | payer OTHER ==
[~2022-12-07] MED LIST changes: +ACET-683 PO; +OXYC-517 PO
[2022-12-07 18:41] LABS: BASO % 0.6 % (0.0-1.0); EOS # 0.3 10^3/uL (0.0-0.5); EOS % 4.4 % (0.0-3.0); HEMATOCRIT 41.6 % (36.0-47.0); HEMOGLOBIN 13.9 g/dl (12.0-15.5); LYMPH # 2.1 10^3/uL (1.5-5.0); LYMPH % 31.4 % (24.0-44.0); MEAN CORPUSCULAR HEMOGLOBIN 29.9 pg (27.0-33.0); MEAN CORPUSCULAR HGB CONC 33.4 g/dl (32.0-36.5); MEAN CORPUSCULAR VOLUME 89.5 fl (80.0-96.0); MONO # 0.3 10^3/uL (0.0-0.8); MONO % 4.7 % (2.0-8.0); NEUTROPHILS # 3.9 10^3/uL (1.5-8.5); NEUTROPHILS % 58.3 % (36.0-66.0); PLATELET COUNT, AUTOMATED 346 10^3/uL (150-450); RED BLOOD COUNT 4.65 10^6/uL (4.00-5.40); WHITE BLOOD COUNT 6.6 10^3/uL (4.0-10.0)
[2022-12-07 18:52] LABS: ALBUMIN 3.9 G/DL (3.2-5.2); ALKALINE PHOSPHATASE 106 U/L (46-116); ALT/SGPT 21 U/L (7.0-40); AST/SGOT 16 U/L (<34); BILIRUBIN,TOTAL 0.7 MG/DL (0.3-1.2); BLOOD UREA NITROGEN 10 MG/DL (9-23); CALCIUM LEVEL 8.9 MG/DL (8.5-10.1); CARBON DIOXIDE LEVEL 28 MMOL/L (20-31); CHLORIDE LEVEL 107 MMOL/L (98-107); CHOLESTEROL LEVEL 219 MG/DL (<200); CHOLESTEROL RISK RATIO 3.58 (<5); CREATININE FOR GFR 0.61 MG/DL (0.55-1.30); GLOMERULAR FILTRATION RATE > 60.0 (>60); GLUCOSE, FASTING 70 MG/DL (60-100); HDL CHOLESTEROL 61.1 MG/DL (>40); LDL CHOLESTEROL 137.5 MG/DL (<100); NON-HDL-C 157.9 MG/DL; POTASSIUM SERUM 4.2 MMOL/L (3.5-5.1); SODIUM LEVEL 141 MMOL/L (136-145); TOTAL PROTEIN 6.9 G/DL (5.7-8.2); TRIGLYCERIDES LEVEL 102 MG/DL (<150)
[2022-12-07 18:54] LABS: THYROID STIMULATING HORMONE 1.048 uIU/ML (0.55-4.78); TOTAL 25(OH) VITAMIN D 12.6 NG/ML (20.0-100.0)
[2022-12-07 19:10] LABS: HEMOGLOBIN A1c 4.5 % (4.0-6.0)
== END ==
LOC: M LAB REF 16:24
PROVIDERS: ATTEND Nurse Practitioner Family
DX: Z13.228 Encounter for screening for other metabolic disorders (principal)

== ENCOUNTER → 2023-12-11 | Outpatient (CLI) | payer OTHER ==
[~2023-12-11] MED LIST changes: +LORA-1041 PO; -LORA-674 PO
== END ==
LOC: M WHC 11:40
PROVIDERS: ATTEND Nurse Practitioner Family
DX: R10.2 Pelvic and perineal pain (principal); F52.5 Vaginismus not due to a substance or known physiological condition

== ENCOUNTER → 2024-09-17 | Outpatient (REF) | payer OTHER ==
[~2024-09-17] MED LIST changes: -CYCL5TAB PO; +CYCL5TAB4 PO
[2024-09-17 14:48] LABS: BASO % 0.6 % (0.0-1.0); EOS # 0.2 10^3/uL (0.0-0.5); EOS % 3.5 % (0.0-3.0); HEMATOCRIT 45.4 % (36.0-47.0); HEMOGLOBIN 15.2 g/dl (12.0-15.5); LYMPH # 1.7 10^3/uL (1.5-5.0); LYMPH % 26.5 % (24.0-44.0); MEAN CORPUSCULAR HEMOGLOBIN 29.5 pg (27.0-33.0); MEAN CORPUSCULAR HGB CONC 33.5 g/dl (32.0-36.5); MEAN CORPUSCULAR VOLUME 88.2 fl (80.0-96.0); MONO # 0.4 10^3/uL (0.0-0.8); MONO % 5.9 % (2.0-8.0); NEUTROPHILS # 3.9 10^3/uL (1.5-8.5); NEUTROPHILS % 63.3 % (36.0-66.0); PLATELET COUNT, AUTOMATED 323 10^3/uL (150-450); RED BLOOD COUNT 5.15 10^6/uL (4.00-5.40); WHITE BLOOD COUNT 6.2 10^3/uL (4.0-10.0)
[2024-09-17 15:24] LABS: IRON (FE) 152 UG/DL (50-170)
[2024-09-17 15:25] LABS: ALBUMIN 4.2 G/DL (3.2-5.2); ALKALINE PHOSPHATASE 83 U/L (35-104); ALT/SGPT 11 U/L (7.0-40); AST/SGOT 12 U/L (<34); BILIRUBIN,TOTAL 0.5 MG/DL (0.3-1.2); BLOOD UREA NITROGEN 15 MG/DL (9-23); CALCIUM LEVEL 9.8 MG/DL (8.5-10.1); CARBON DIOXIDE LEVEL 28 MMOL/L (20-31); CHLORIDE LEVEL 107 MMOL/L (98-107); CHOLESTEROL LEVEL 251 MG/DL (<200); CREATININE FOR GFR 0.73 MG/DL (0.55-1.30); FERRITIN 12.9 NG/ML (7.3-270.7); GLOMERULAR FILTRATION RATE > 60.0 (>60); GLUCOSE, FASTING 65 MG/DL (60-100); HDL CHOLESTEROL 73.7 MG/DL (>40); LDL CHOLESTEROL 162.1 MG/DL (<100); MAGNESIUM LEVEL 1.8 MG/DL (1.8-2.4); NON-HDL-C 177.3 MG/DL; PERCENT SATURATION 39.9 % (13.2-45.0); POTASSIUM SERUM 3.9 MMOL/L (3.5-5.1); SODIUM LEVEL 142 MMOL/L (136-145); THYROID STIMULATING HORMONE 1.339 uIU/ML (0.55-4.78); TOTAL IRON BINDING CAPACITY 381 UG/DL (250-425); TOTAL PROTEIN 7.7 G/DL (5.7-8.2); TRIGLYCERIDES LEVEL 76 MG/DL (<150)
[2024-09-17 15:27] LABS: FOLATE 12.7 NG/ML (>5.4); TOTAL 25(OH) VITAMIN D 10.5 NG/ML (20.0-100.0); VITAMIN B12 LEVEL 732 PG/ML (211-911)
[2024-09-17 16:01] LABS: HEMOGLOBIN A1c 4.7 % (4.0-6.0)
== END ==
LOC: M LAB REF 13:00
PROVIDERS: ATTEND Nurse Practitioner Family
DX: E66.3 Overweight (principal); N92.6 Irregular menstruation, unspecified; E55.9 Vitamin D deficiency, unspecified

== ENCOUNTER → 2025-06-16 | Outpatient (REF) | payer OTHER | LOC: M PLALAB 14:10 | PROVIDERS: ATTEND Obstetrics & Gynecology | DX: Z53.9 Procedure and treatment not carried out, unspecified reason (principal) ==

== ENCOUNTER → 2025-08-06 | Outpatient (CLI) | payer OTHER | LOC: M WHC 09:33 | PROVIDERS: ATTEND Obstetrics & Gynecology | DX: N93.9 Abnormal uterine and vaginal bleeding, unspecified (principal) ==

== ENCOUNTER → 2025-08-06 | Outpatient (CLI) | payer OTHER ==
[2025-08-06 15:47] LABS: PLATELET COUNT, AUTOMATED 342 10^3/uL (150-450)
[2025-08-06 15:51] LABS: ALT/SGPT 13 U/L (7.0-40); AST/SGOT 17 U/L (<34); CALCIUM LEVEL 9.3 MG/DL (8.5-10.1); CARBON DIOXIDE LEVEL 28 MMOL/L (20-31); CHLORIDE LEVEL 105 MMOL/L (98-107); CREATININE FOR GFR 0.71 MG/DL (0.55-1.30); GLOMERULAR FILTRATION RATE > 90.0 (>60); POTASSIUM SERUM 4.5 MMOL/L (3.5-5.1); SODIUM LEVEL 140 MMOL/L (136-145)
[2025-08-06 15:54] LABS: PROLACTIN 6.24 NG/ML
[2025-08-06 15:57] LABS: FREE T4 1.39 NG/DL (0.89-1.76)
== END ==
LOC: M PLALAB 11:01
PROVIDERS: ATTEND Obstetrics & Gynecology
DX: N93.9 Abnormal uterine and vaginal bleeding, unspecified (principal)